=== PATIENT | female | born 1955 | race Caucasian/White ===

== ENCOUNTER 2022-01-19 07:15 | Emergency (ER) | payer OTHER ==
[~2022-01-19] VITALS: Ht 167.6 cm; Wt 74.8 kg
[2022-01-19] MEDS ORDERED: ATOR40TA PO (07:39)
[2022-01-19] MEDS ORDERED: OMEP20TA20 PO (07:39)
[2022-01-19] MEDS ORDERED: AMLO10TA4 PO (07:39)
[2022-01-19] MEDS ORDERED: LOSA100T31 PO (07:39)
[2022-01-19] MEDS ORDERED: ASPI81TA31 PO (07:39)
--- NOTE | 2022-01-19 07:39 | NUR ---
PT SEEN AND EVALUATED BY DR MERLOS.
[2022-01-19] MEDS ORDERED: AMLODIPINE 5 MG TABLET PO ONE (07:45)
[2022-01-19] MEDS ORDERED: METOCLOPRAMIDE HCL 10 MG/2 ML VIAL IV ONE (07:45)
[2022-01-19] MEDS ORDERED: diphenhydrAMINE 50 MG/1 ML VIAL IV ONE (07:45)
[2022-01-19 08:00] LABS: HEMATOCRIT 40.2 % (31.2-41.9); MEAN CORPUSCULAR HEMOGLOBIN 33.4 uug (24.7-32.8); MEAN CORPUSCULAR VOLUME 96.4 fL (75.5-95.3); PLATELET COUNT (AUTO) 324 K/uL (179-408)
[2022-01-19 08:12] LABS: CARBON DIOXIDE 27 mmol/L (21-32); CHLORIDE 101 mmol/L (98-107); CREATININE 1.1 mg/dL (0.6-1.3); GLUCOSE 142 mg/dL (74-106); POTASSIUM 3.4 mmol/L (3.5-5.1); UREA NITROGEN, BLOOD 15 mg/dL (7-18)
[2022-01-19] MEDS ORDERED: AMLODIPINE 5 MG TABLET ONE (08:12)
[2022-01-19] MEDS ORDERED: diphenhydrAMINE 50 MG/1 ML VIAL ONE (08:12)
[2022-01-19] MEDS ORDERED: METOCLOPRAMIDE HCL 10 MG/2 ML VIAL ONE (08:12)
[2022-01-19 08:13] VITALS: BP 169/90
[2022-01-19] MEDS ORDERED: MAG HYDROX/AL HYDROX/SIMETH 30 ML LIQUID UDC PO ONE (08:15)
[2022-01-19] MEDS ORDERED: PANTOPRAZOLE SODIUM 40 MG VIAL IV ONE (08:15)
[2022-01-19] MEDS ORDERED: ARIP2TAB3 PO (08:40)
[2022-01-19] MEDS ORDERED: PANTOPRAZOLE SODIUM 40 MG VIAL ONE (08:42)
[2022-01-19] MEDS ORDERED: MAG HYDROX/AL HYDROX/SIMETH 30 ML LIQUID UDC ONE (08:42)
[2022-01-19] MEDS ORDERED: CLON0.1T PO (08:48)
[2022-01-19] MEDS ORDERED: AMLO10TA59 PO (08:48)
--- NOTE | 2022-01-19 09:23 | NUR ---
IV removed. Catheter intact and site benign. Pressure and 4x4 gauze applied to site. No bleeding noted. Patient discharged to home in stable condition. Written and verbal after care instructions given to patient's daughter who speaks fluent [place] and works as a nurse in this hospital. Patient's daughter verbalized understanding and compliance of instructions. Stressed follow up with primary doctor or return to ER for worsening s/s.
== END 2022-01-19 09:30 | disposition home or self-care (01) ==
LOC: ER 07:18
DX: I10 Essential (primary) hypertension (principal); R94.31 Abnormal electrocardiogram [ECG] [EKG]; E78.5 Hyperlipidemia, unspecified; K21.9 Gastro-esophageal reflux disease without esophagitis; F41.9 Anxiety disorder, unspecified; Z79.82 Long term (current) use of aspirin; Z79.899 Other long term (current) drug therapy
CPT/HCPCS: 99285; 96374; 71045; 96375; 80048; 85025; 85730; 84484; 36415; 93005 ×2; J1200; J2765; C9113; A4663